=== PATIENT | male | born 1985 | race Caucasian/White ===

== ENCOUNTER 2019-08-14 14:59 | Inpatient (IN) | payer SELFPAY ==
[2019-08-14] MEDS ORDERED: ONDANSETRON 4 MG TAB.RAPDIS PO ONE (15:13)
[2019-08-14] MEDS ORDERED: ONDANSETRON HCL INJ/PF 4 MG/2 ML SDV IV ONE (15:15)
--- NOTE | 2019-08-14 15:15 | ER Document Report ---
ED GI/ - General Chief Complaint: Vomiting Stated Complaint: VOMITING Time Seen by Provider: 08/14/19 15:12 Notes: Patient is a 33-year-old male who presents the emergency department with a chief complaint of a fever, chills, myalgias, runny nose. Patient denies any recent travel. Patient also states that he has had a nonproductive cough and a headache. Patient was seen at the [facility] clinic and was tested for coven. When they went to go swab his throat, the patient ended up vomiting. Patient states that he has felt nauseous. He was then referred to the emergency department for further evaluation. Patient denies smoking. - Related Data Allergies/Adverse Reactions: No Known Allergies Allergy (Verified 08/14/19 15:19) Past Medical History - Social History Smoking Status: Never Smoker Family History: Reviewed & Not Pertinent Review of Systems - Review of Systems Notes: REVIEW OF SYSTEMS: CONSTITUTIONAL : Denies recent illness. Denies recent unintentional weight loss. See HPI. EENT: Denies eye, ear, throat, or mouth pain, discharge, or symptoms. Denies nasal or sinus congestion. CARDIOVASCULAR: Denies chest pain. RESPIRATORY: Denies shortness of breath, cough, congestion, difficulty breathing, or wheezing. GASTROINTESTINAL: See HPI. GENITOURINARY: Denies difficulty urinating, burning, blood in urine, urgency or frequency. MUSCULOSKELETAL: Denies neck and back pain. Denies joint pain or swelling. SKIN: Denies rash, itchiness, or lesions HEMATOLOGIC : Denies easy bruising or bleeding. LYMPHATIC: Denies swollen, painful, enlarged glands. NEUROLOGICAL: Denies no numbness or tingling denies weakness. Denies headache. Denies altered mental status. Denies alteration in speech. PSYCHIATRIC: Denies stress, anxiety, alteration in sleep patterns, or depression. All other systems reviewed and negative. Physical Exam - Vital signs Vitals: Temp Pulse Resp BP Pulse Ox 98.6 F 128 H 16 138/72 H 92 08/14/19 15:19 08/14/19 15:19 08/14/19 15:19 08/14/19 15:19 08/14/19 15:19 - Notes Notes: PHYSICAL EXAMINATION: GENERAL: Appears well, healthy, well-nourished, no acute distress. HEAD: Normocephalic, atraumatic. EYES: PERRL, conjunctiva normal, all extraocular movements intact, sclera nonicteric ENT: Dry mucous membranes. NECK: Supple, no noticeable swelling, redness, rash. Normal range of motion. LUNGS: Equal breath sounds bilaterally and wheezes noted throughout. CARDIOVASCULAR: S1-S2, regular rate, regular rhythm. Radial pulses 2+, normal. ABDOMEN: Normoactive bowel sounds. Soft, nontender, no guarding, no rebound tenderness, and no masses palpated. EXTREMITIES: Normal strength and range of motion, no pitting or edema. No cyanosis. NEUROLOGICAL: Moves all extremities upon command. Strength 5/5 in all extremities. PSYCH: Normal mood, normal affect. SKIN: Warm, dry. No rash, lesions, ulcerations noted. Normal skin turgor. Course - Re-evaluation Re-evalutation: 08/14/19 18:09 Patient's hematology does not show a leukocytosis, but he does have a left shift. His sodium was 134, but he received a liter of fluids. His ALT is mildly elevated. Urinalysis shows protein in the urine, consistent with dehydration. Given 19 screening pending as per the [facility] clinic. Patient's chest x-ray shows airspace disease and patchy opacification, as per the radiologist. Based off of these findings and the patient having COVID 19 symptoms. I will start him on Azithromycin and send him home with an albuterol inhaler. He is on day 4 of his symptoms. Follow-up precautions were given. Verbal discharge instructions were given to the patient. They verbalized understanding. They are stable for discharge. 08/14/19 18:35 The patient has a temperature of 103. He will be given Tylenol and will be monitored. If his temperature comes down, he will be able to go home. 08/14/19 19:23 I was informed that the patient became tachycardic in the 140s. His oxygen saturation was 88% on room air. He was placed on 2 L nasal cannula, but now is requiring 4 L of oxygen. ABG ordered. 08/14/19 20:[address] Wills. The patient will be admitted to the medical floor, on the COVID 19 unit. - Vital Signs Vital signs: Temp Pulse Resp BP Pulse Ox 99.4 F 93 19 135/83 H 96 08/14/19 21:45 08/14/19 21:45 08/14/19 21:45 08/14/19 21:45 08/14/19 21:45 - Laboratory Result Diagrams: 08/14/19 16:30 08/14/19 16:30 Laboratory results interpreted by me: 08/14/19 08/14/19 08/14/19 16:30 16:30 17:30 Lymph % (Auto) 8.7 L Seg Neutrophils % 80.3 H Carbonic Acid ABG pH ABG pCO2 ABG Total CO2 Sodium 134.3 L Glucose 111 H ALT 75 H Urine Protein 100 H 08/14/19 19:51 Lymph % (Auto) Seg Neutrophils % Carbonic Acid 0.82 L ABG pH 7.50 H ABG pCO2 27.4 L ABG Total CO2 21.5 L Sodium Glucose ALT Urine Protein Discharge - Discharge Clinical Impression: Cough Vomiting Qualifiers: Vomiting type: unspecified Vomiting Intractability: non-intractable Nausea presence: with nausea Qualified Code(s): R11.2 - Nausea with vomiting, unspecified Fever Qualifiers: Fever type: unspecified Qualified Code(s): R50.9 - Fever, unspecified Condition: Fair Disposition: ADMITTED INPATIENT Admitting Provider: Elma (Hospitalist) Unit Admitted: Medical Floor
[2019-08-14] MEDS ORDERED: NORMAL SALINE 1000 ML 1,000 ML IV ONE (15:16)
--- NOTE | 2019-08-14 16:22 | RADIOLOGY REPORT (SQ) ---
EXAM DESCRIPTION: CHEST SINGLE VIEW IMAGES COMPLETED DATE/TIME: 08/14/2019 3:09 pm REASON FOR STUDY: shortness of breath COMPARISON: None. EXAM PARAMETERS: NUMBER OF VIEWS: One view. TECHNIQUE: Single frontal radiographic view of the chest acquired. RADIATION DOSE: NA LIMITATIONS: None. FINDINGS: LUNGS AND PLEURA: Ill-defined patchy opacification in the left peripheral lower lung may r epresent combination of left effusion and airspace disease. The right lung is clear. No pneumothora x. MEDIASTINUM AND HILAR STRUCTURES: No masses. Contour normal. HEART AND VASCULAR STRUCTURES: Heart normal in size. Normal vasculature. BONES: No acute findings. HARDWARE: None in the chest. OTHER: No other significant finding. IMPRESSION: Peripheral patchy opacification at the left lower lung may represent combination of left effusion and airspace disease. TECHNICAL DOCUMENTATION: JOB ID: [id number] [email or web address] All Rights Reserved Reading location - IP/workstation name: [email or web address]
[2019-08-14 16:51] LABS: ABSOLUTE LYMPHOCYTES (AUTO) 0.9 10^3/uL (0.5-4.7); ABSOLUTE MONOCYTES (AUTO) 1.1 10^3/uL (0.1-1.4); ABSOLUTE NEUT (AUTO) 8.2 10^3/uL (1.7-8.2); BASOPHILS % (AUTO) 0.5 % (0-2); EOSINOPHILS % (AUTO) 0.1 % (0-6); HEMATOCRIT 43.6 % (37.9-51.0); HEMOGLOBIN 15.3 g/dL (13.5-17.0); LYMPHOCYTES % (AUTO) 8.7 % (13-45); MEAN CORPUSCULAR HGB CONC 35.2 g/dL (32.0-36.0); MEAN CORPUSCULAR VOLUME 82 fl (80-97); MONOCYTES % (AUTO) 10.4 % (3-13); PLATELET COUNT 338 10^3/uL (150-450); RED CELL DISTRIBUTION WIDTH 13.2 % (11.5-14.0); SEGMENTED NEUTROPHILS % (AUTO) 80.3 % (42-78); TOTAL CELLS COUNTED % (AUTO) 100 %; WHITE BLOOD COUNT 10.2 10^3/uL (4.0-10.5)
[2019-08-14 17:14] LABS: ALBUMIN 4.3 g/dL (3.5-5.0); ALKALINE PHOSPHATASE 59 U/L (38-126); ANION GAP 10 (5-19); ASPARTATE AMINO TRANSFERASE 54 U/L (17-59); BILIRUBIN,DIRECT 0.1 mg/dL (0.0-0.4); BLOOD UREA NITROGEN 13 mg/dL (7-20); CALCIUM 9.3 mg/dL (8.4-10.2); CARBON DIOXIDE 26 mmol/L (22-30); CHLORIDE 98 mmol/L (98-107); GLUCOSE 111 mg/dL (75-110); POTASSIUM 4.9 mmol/L (3.6-5.0); TOTAL PROTEIN 7.5 g/dL (6.3-8.2)
[2019-08-14 17:49] LABS: APPEARANCE,URINE SLIGHTLY-CLOUDY; BILIRUBIN,URINE NEGATIVE (NEGATIVE); COLOR,URINE AMBER; GLUCOSE, URINE NEGATIVE (NEGATIVE); KETONES,URINE NEGATIVE (NEGATIVE); PROTEIN,URINE 100 mg/dL (NEGATIVE); URINE SPECIFIC GRAVITY 1.033; UROBILINOGEN,URINE NEGATIVE mg/dL (<2.0)
[2019-08-14] MEDS ORDERED: AZITHROMYCIN 250 MG TABLET PO ONE (18:13)
[2019-08-14] MEDS ORDERED: ACETAMINOPHEN 325 MG TABLET PO ONE (18:27)
[2019-08-14] MEDS ORDERED: ALBUTEROL SULFATE HFA (90 MCG/PUFF) 8 GM MDI (1 MDI/ER DISP) IH PRN (19:21)
[2019-08-14] MEDS: ALBUTEROL SULFATE HFA (90 MCG/PUFF) 8 GM MDI IH SCH (19:59)
[2019-08-14 20:03] LABS: ARTERIAL BLOOD H2CO3 0.82 mmol/L (1.05-1.35); ARTERIAL BLOOD HCO3 20.7 mmol/L (20-24); ARTERIAL BLOOD O2 SATURATION 97.7 % (94-98); ARTERIAL BLOOD PCO2 27.4 mmHg (35-45); ARTERIAL BLOOD PO2 91.6 mmHg (80-100); ARTERIAL BLOOD TOTAL CO2 21.5 mmol/L (23-27)
[2019-08-14 20:07] LABS: ARTERIAL BLOOD FIO2 4L
[2019-08-14] MEDS ORDERED: GUAIFENESIN SYRP 200 MG/10 ML UDC PO PRN (21:45)
[2019-08-14] MEDS ORDERED: MORPHINE SULFATE 10 MG/ML INJ IV PRN (22:11)
[2019-08-14] MEDS ORDERED: MAG HYDROX/AL HYDROX/SIMETH SUSP 30 ML UDCUP PO PRN (22:11)
[2019-08-14] MEDS ORDERED: MAGNESIUM HYDROXIDE SUSP 30 ML UDCUP PO PRN (22:11)
[2019-08-14] MEDS ORDERED: INFLUENZA QUAD (6MOS+) 2019-20 VAC 0.5 ML SYR IM ONE (22:14)
[2019-08-14] MEDS: CEFTRIAXONE 1 GM/D5W RTU 1 GM/50 ML RTUPB IV SCH (22:50)
[2019-08-14] MEDS: HEPARIN SOD (PORCINE) 5,000 UNIT/ML 1 ML VIAL SUBCUT SCH (22:50)
[2019-08-14] MEDS: FAMOTIDINE 20 MG TABLET PO SCH (22:50)
[2019-08-14] MEDS: MORPHINE SULFATE 10 MG/ML INJ IV PRN (23:44)
[2019-08-15] MEDS: ALBUTEROL SULFATE HFA (90 MCG/PUFF) 8 GM MDI IH SCH ×6 (00:15→19:30)
[2019-08-15] MEDS: ACETAMINOPHEN 325 MG TABLET PO PRN ×2 (01:17→13:41)
[2019-08-15] MEDS: IBUPROFEN 800 MG TABLET PO PRN ×3 (02:48→21:28)
[2019-08-15] MEDS: MORPHINE SULFATE 10 MG/ML INJ IV PRN ×2 (02:57→20:10)
[2019-08-15 05:44] LABS: HEMATOCRIT 40.5 % (37.9-51.0); MEAN CORPUSCULAR HEMOGLOBIN 28.4 pg (27.0-33.4); MEAN CORPUSCULAR HGB CONC 34.6 g/dL (32.0-36.0); MEAN CORPUSCULAR VOLUME 82 fl (80-97); PLATELET COUNT 305 10^3/uL (150-450); RED BLOOD COUNT 4.93 10^6/uL (4.35-5.55); RED CELL DISTRIBUTION WIDTH 13.3 % (11.5-14.0); WHITE BLOOD COUNT 11.2 10^3/uL (4.0-10.5)
[2019-08-15 06:02] LABS: ANION GAP 11 (5-19); BLOOD UREA NITROGEN 14 mg/dL (7-20); CARBON DIOXIDE 24 mmol/L (22-30); CHLORIDE 99 mmol/L (98-107); GLUCOSE 118 mg/dL (75-110); POTASSIUM 4.3 mmol/L (3.6-5.0)
--- NOTE | 2019-08-15 06:32 | PDOC H&P ---
History of Present Illness Admission Date/PCP: 08/14/19 20:31 No local PCP Patient complains of: Fever History of Present Illness: JAYSON OBREGON is a 33 year old male who presented the emergency room with a 3- day history of fever. He admits having developed an intermittent fever 3 days ago which has gradually worsened to being severe (subjective). His fever has been accompanied by chills, ague, malaise, generalized weakness and fatigue. His fevers been associated with rhinorrhea, nonproductive cough and headache. He denies other associated or accompanying signs and symptoms. He denies prior similar episodes. He has not identified any aggravating or ameliorating factors for his fever. In the emergency room he was found to have a left lower lobe infiltrate on his chest x-ray and a fever to 103 F with an oxygen saturation of 88% on room air and a tachycardia in the 140s. He was subsequently treated with IV fluids, antipyretics and antibiotics in the emergency room and admitted to the medical floor for further evaluation and treatment. Covid-19 testing has been performed. Past Medical History Cardiac Medical History: Denies: Atrial Fibrillation, Coronary Artery Disease, DVT, Hyperlipidema, Hypertension, Pulmonary Embolism Pulmonary Medical History: Denies: Asthma, Chronic Obstructive Pulmonary Disease (COPD) EENT Medical History: Denies: Cataracts, Ears - Hearing aids Neurological Medical History: Denies: Hemorrhagic CVA, Ischemic CVA, Seizures Endocrine Medical History: Reports: Obesity Denies: Diabetes Mellitus Type 1, Diabetes Mellitus Type 2, Hyperthyroidism, Hypothyroidism Renal/ Medical History: Denies: Chronic Kidney Disease, Nephrolithiasis Malignancy Medical History: Reports: None GI Medical History: Denies: Cirrhosis, Crohn's Disease, Hepatitis, Ulcerative Colitis Musculoskeltal Medical History: Denies: Arthritis, Gout Skin Medical History: Denies: Eczema, Psoriasis Psychiatric Medical History: Denies: Alcohol Dependency, Substance Abuse, Tobacco Dependency Traumatic Medical History: Reports: None Hematology: Denies: Anemia, Bleeding Tendencies Infectious Medical History: Reports: None Past Surgical History Past Surgical History: Reports: None Social History Information Source: Patient Lives with: Spouse/Significant other Smoking Status: Never Smoker Electronic Cigarette use?: No Frequency of Alcohol Use: None Hx Recreational Drug Use: No Drugs: None Hx Prescription Drug Abuse: No - Advance Directive Resuscitation Status: Full Code Surrogate healthcare decision maker:: Estephaniaze Obregon Family History Family History: denies: CAD, DM, Hypertension, Malignancy Parental Family History Reviewed: Yes Children Family History Reviewed: No Sibling(s) Family History Reviewed.: Yes Medication/Allergy Home Medications: Albuterol Sulfate [Proair HFA Inhalation Aerosol 8.5 gm MDI] 2 puff IH Q4H PRN #1 mdi 08/14/19 Azithromycin [Zithromax 250 mg Tablet] 250 mg PO DAILY #4 tablet 08/14/19 Ondansetron [Zofran Odt 4 mg Tablet] 1 - 2 tab PO Q4H PRN #30 tab.rapdis 08/14/19 Allergies/Adverse Reactions: No Known Allergies Allergy (Verified 08/14/19 15:19) Review of Systems Constitutional: PRESENT: as per HPI, chills, fatigue, fever(s), headache(s), weakness Eyes: ABSENT: visual disturbances, other - Eye pain Ears: ABSENT: hearing changes, other - Ear pain Nose, Mouth, and Throat: PRESENT: headache(s). ABSENT: mouth pain, sore throat Cardiovascular: ABSENT: chest pain, palpitations Respiratory: PRESENT: cough. ABSENT: dyspnea, sputum Gastrointestinal: ABSENT: abdominal pain, constipation, diarrhea, nausea, vomiting Genitourinary: ABSENT: dysuria, hematuria Musculoskeletal: PRESENT: muscle weakness - Generalized. ABSENT: joint swelling Integumentary: ABSENT: pruritus, rash Neurological: ABSENT: confusion, convulsions, focal weakness, memory loss, syncope Psychiatric: ABSENT: anxiety, depression Endocrine: ABSENT: cold intolerance, heat intolerance, polydipsia, polyphagia, polyuria Hematologic/Lymphatic: ABSENT: easy bleeding, easy bruising Allergic/Immunologic: ABSENT: seasonal rhinorrhea Physical Exam Vital Signs: Temp Pulse Resp BP Pulse Ox 101.8 F H 109 H 25 H 114/71 95 08/14/19 19:35 08/14/19 19:35 08/14/19 19:35 08/14/19 19:35 08/14/19 19:35 Intake & Output 08/12/19 08/13/19 08/14/19 23:59 23:59 23:59 Intake Total 1000 Balance 1000 Weight 108.862 kg General appearance: PRESENT: no acute distress, cooperative, obese Head exam: PRESENT: atraumatic, normocephalic Eye exam: PRESENT: conjunctiva pink. ABSENT: conjunctival injection, scleral icterus Ear exam: PRESENT: normal external ear exam. ABSENT: bleeding, drainage Mouth exam: PRESENT: dry mucosa, neck supple Neck exam: ABSENT: thyromegaly, tracheal deviation Respiratory exam: PRESENT: clear to auscultation clarita, symmetrical, unlabored Cardiovascular exam: PRESENT: RRR. ABSENT: clicks, gallop, rubs Pulses: PRESENT: normal radial pulses, normal dorsalis pedis pul Vascular exam: PRESENT: normal capillary refill. ABSENT: pallor GI/Abdominal exam: PRESENT: normal bowel sounds, soft Rectal exam: PRESENT: deferred Extremities exam: ABSENT: joint swelling, pedal edema Musculoskeletal exam: ABSENT: deformity, dislocation Neurological exam: PRESENT: alert, oriented to person, oriented to place, oriented to time, oriented to situation, CN II-XII grossly intact. ABSENT: jose angel r sensory deficit Psychiatric exam: PRESENT: appropriate affect, normal mood Skin exam: PRESENT: dry, intact, warm. ABSENT: jaundice, rash, urticaria Results Laboratory Results: 08/14/19 16:30 08/14/19 16:30 08/14/19 08/14/19 08/14/19 16:30 16:30 17:30 WBC 10.2 RBC 5.30 Hgb 15.3 Hct 43.6 MCV 82 MCH 29.0 MCHC 35.2 RDW 13.2 Plt Count 338 Seg Neutrophils % 80.3 H Carbonic Acid HCO3/H2CO3 Ratio ABG pH ABG pCO2 ABG pO2 ABG HCO3 ABG O2 Saturation ABG Base Excess FiO2 Sodium 134.3 L Potassium 4.9 Chloride 98 Carbon Dioxide 26 Anion Gap 10 BUN 13 Creatinine 0.84 Est GFR ( Amer) > 60 Glucose 111 H Calcium 9.3 Total Bilirubin 1.0 AST 54 Alkaline Phosphatase 59 Total Protein 7.5 Albumin 4.3 Lipase 58.4 Urine Color TANI Urine Appearance SLIGHTLY-CLOUDY Urine pH 6.0 Ur Specific [place] 1.033 Urine Protein 100 H Urine Glucose (UA) NEGATIVE Urine Ketones NEGATIVE Urine Blood NEGATIVE Urine RBC (Auto) 4 08/14/19 19:51 WBC RBC Hgb Hct MCV MCH MCHC RDW Plt Count Seg Neutrophils % Carbonic Acid 0.82 L HCO3/H2CO3 Ratio 25:1 ABG pH 7.50 H ABG pCO2 27.4 L ABG pO2 91.6 ABG HCO3 20.7 ABG O2 Saturation 97.7 ABG Base Excess -1.0 FiO2 4L Sodium Potassium Chloride Carbon Dioxide Anion Gap BUN Creatinine Est GFR ( Amer) Glucose Calcium Total Bilirubin AST Alkaline Phosphatase Total Protein Albumin Lipase Urine Color Urine Appearance Urine pH Ur Specific [place] Urine Protein Urine Glucose (UA) Urine Ketones Urine Blood Urine RBC (Auto) Impressions: Chest X-Ray 08/14/19 15:28 IMPRESSION: Peripheral patchy opacification at the left lower lung may represent combination of left effusion and airspace disease. Assessment and Plan - Diagnosis (1) Left lower lobe pneumonia Qualifiers: Pneumonia type: due to unspecified organism Qualified Code(s): J18.9 - Pneumonia, unspecified organism Is this a current diagnosis for this admission?: Yes (2) Acute respiratory failure with hypoxia Is this a current diagnosis for this admission?: Yes (3) Fever Qualifiers: Fever type: unspecified Qualified Code(s): R50.9 - Fever, unspecified Is this a current diagnosis for this admission?: Yes (4) Generalized weakness Is this a current diagnosis for this admission?: Yes (5) Fatigue Qualifiers: Fatigue type: unspecified Qualified Code(s): R53.83 - Other fatigue Is this a current diagnosis for this admission?: Yes (6) Chills with fever Is this a current diagnosis for this admission?: Yes (7) Cough Is this a current diagnosis for this admission?: Yes (8) Malaise Is this a current diagnosis for this admission?: Yes (9) Ague Is this a current diagnosis for this admission?: Yes - Plan Summary Summary: Patient is admitted to the medical floor where he will receive routine supportive and symptomatic cares. He will be treated with IV fluid and IV a ntibiotics utilizing azithromycin and Rocephin. He will receive supplemental oxygen as needed to maintain an adequate oxygen saturation utilizing nasal cannula oxygen and if required noninvasive airway pressure support devices such as BiPAP. CBCs, metabolic profiles and magnesium levels will be obtained as appropriate. Arterial blood gases will be obtained as needed. Patient will use morphine sulfate 2 to 4 mg IV every 2 hours as needed for pain control. Coronavirus Covid-19 testing is pending. - Time Time Spent with patient: 15-24 minutes Medications reviewed and adjusted accordingly: No - None Anticipated discharge: Home - Inpatient Certification Based on my medical assessment, after consideration of the patient's comorbidities, presenting symptoms, or acuity I expect that the services needed warrant INPATIENT care.: Yes I certify that my determination is in accordance with my understanding of Medicare's requirements for reasonable and necessary INPATIENT services [42 CFR 412.3e].: Yes Medical Necessity: Need Close Monitoring Due to Risk of Patient Decompensation, Need For IV Fluids, Risk of Complication if Not Cared For in Hospital, Risk of Diagnosis Which Will Require Inpatient Eval/Care/Monitoring
[2019-08-15] MEDS: HEPARIN SOD (PORCINE) 5,000 UNIT/ML 1 ML VIAL SUBCUT SCH ×3 (07:00→21:27)
[2019-08-15] MEDS: AZITHROMYCIN 250 MG TABLET PO SCH (09:18)
[2019-08-15] MEDS: FAMOTIDINE 20 MG TABLET PO SCH ×2 (09:18→21:28)
--- NOTE | 2019-08-15 09:30 | EKG REPORT ---
SEVERITY:- OTHERWISE NORMAL ECG - SINUS TACHYCARDIA : Confirmed by: Johnathon Lopez 15-Aug-2019 09:29:42
[2019-08-15] MEDS ORDERED: DOCUSATE SODIUM 100 MG CAPSULE PO SCH (10:00)
--- NOTE | 2019-08-15 17:31 | PDOC PROGRESS REPORT ---
Subjective Progress Note for:: 08/15/19 Subjective:: The patient was having some breathing difficulties. He has a cough. He states that he feels short of breath. When he began to feel short of breath he became panicked and this made his breathing worse. We are placing him on nasal cannula oxygen at this time. Reason For Visit: PNEUOMONIA Physical Exam Vital Signs: Temp Pulse Resp BP Pulse Ox 99.1 F 84 18 104/68 93 08/15/19 15:29 08/15/19 15:29 08/15/19 15:29 08/15/19 15:29 08/15/19 15:29 Intake & Output 08/14/19 08/15/19 08/16/19 06:59 06:59 06:59 Intake Total 2150 466 Balance 2150 466 Weight 108.8 kg General appearance: PRESENT: cooperative, mild distress, well-developed Head exam: PRESENT: atraumatic, normocephalic Eye exam: PRESENT: conjunctiva pink. ABSENT: scleral icterus Ear exam: PRESENT: normal external ear exam. ABSENT: bleeding, drainage Mouth exam: PRESENT: moist, tongue midline Respiratory exam: PRESENT: rales - Faint rales bilaterally, symmetrical, tachypnea, unlabored. ABSENT: accessory muscle use, prolonged expiratory phas, rhonchi, wheezes Cardiovascular exam: PRESENT: RRR, +S1, +S2 GI/Abdominal exam: PRESENT: normal bowel sounds, soft. ABSENT: distended, guarding, tenderness Rectal exam: PRESENT: deferred Gentrourinary exam: ABSENT: indwelling catheter Extremities exam: ABSENT: pedal edema Musculoskeletal exam: PRESENT: ambulatory, normal inspection. ABSENT: deformity Neurological exam: PRESENT: alert, awake, oriented to person, oriented to place, oriented to time, oriented to situation, CN II-XII grossly intact. ABSENT: altered, motor sensory deficit Psychiatric exam: PRESENT: anxious. ABSENT: agitated Focused psych exam: ABSENT: delusional, paranoid, restlessness Skin exam: PRESENT: dry, normal color, warm. ABSENT: rash Results Laboratory Results: 08/15/19 05:01 08/15/19 05:01 08/14/19 08/14/19 08/15/19 17:30 19:51 05:01 WBC 11.2 H RBC 4.93 Hgb 14.0 Hct 40.5 MCV 82 MCH 28.4 MCHC 34.6 RDW 13.3 Plt Count 305 Carbonic Acid 0.82 L HCO3/H2CO3 Ratio 25:1 ABG pH 7.50 H ABG pCO2 27.4 L ABG pO2 91.6 ABG HCO3 20.7 ABG O2 Saturation 97.7 ABG Base Excess -1.0 FiO2 4L Sodium Potassium Chloride Carbon Dioxide Anion Gap BUN Creatinine Est GFR ( Amer) Glucose Calcium Urine Color TANI Urine Appearance SLIGHTLY-CLOUDY Urine pH 6.0 Ur Specific [place] 1.033 Urine Protein 100 H Urine Glucose (UA) NEGATIVE Urine Ketones NEGATIVE Urine Blood NEGATIVE Urine RBC (Auto) 4 08/15/19 05:01 WBC RBC Hgb Hct MCV MCH MCHC RDW Plt Count Carbonic Acid HCO3/H2CO3 Ratio ABG pH ABG pCO2 ABG pO2 ABG HCO3 ABG O2 Saturation ABG Base Excess FiO2 Sodium 134.4 L Potassium 4.3 Chloride 99 Carbon Dioxide 24 Anion Gap 11 BUN 14 Creatinine 0.80 Est GFR ( Amer) > 60 Glucose 118 H Calcium 9.0 Urine Color Urine Appearance Urine pH Ur Specific [place] Urine Protein Urine Glucose (UA) Urine Ketones Urine Blood Urine RBC (Auto) Impressions: Chest X-Ray 08/14/19 15:28 IMPRESSION: Peripheral patchy opacification at the left lower lung may represent combination of left effusion and airspace disease. Assessment and Plan - Diagnosis (1) Left lower lobe pneumonia Qualifiers: Pneumonia type: due to unspecified organism Qualified Code(s): J18.9 - Pneumonia, unspecified organism Is this a current diagnosis for this admission?: Yes Plan: August 15, 2019 His white count is slightly higher today. Chest x-ray shows consolidation left lower lobe. The patient has not been coughing up much sputum. We will continue antibiotic therapy but patient was also tested for Covid-19. (2) Acute respiratory failure with hypoxia Is this a current diagnosis for this admission?: Yes Plan: August 15, 2019 During this encounter the patient felt very short of breath. His oxygen saturation will sometimes drop below 90. We did place him on 2 L nasal cannula and worked with deep breathing at the bedside. He did begin to feel better. We will make the oxygen available as needed to maintain saturation greater than or equal to 93 to 94%. (3) Fever Qualifiers: Fever type: unspecified Qualified Code(s): R50.9 - Fever, unspecified Is this a current diagnosis for this admission?: Yes Plan: August 15, 2019 Secondary to infection. T-max last night was 103.0 F. Acetaminophen has been helping. Continue serial vital signs. (4) Generalized weakness Is this a current diagnosis for this admission?: Yes Plan: August 15, 2019 The patient reports profound weakness. This is likely due to the infection. I reinforced that his weakness should improve as the infection resolves. (5) Chills with fever Is this a current diagnosis for this admission?: Yes Plan: August 15, 2019 The patient has been experiencing fever with subsequent chills. It seems to happen occasionally. We will continue to monitor with serial vital signs. I did encourage him to be patient as this should resolve as the infection clears. (6) Fatigue Qualifiers: Fatigue type: unspecified Qualified Code(s): R53.83 - Other fatigue Is this a current diagnosis for this admission?: Yes Plan: August 15, 2019 Secondary to infection. Symptom constellation certainly is concerning for viral pneumonia. (7) Headache Qualifiers: Headache type: unspecified Headache chronicity pattern: acute headache Intractability: not intractable Qualified Code(s): R51 - Headache Is this a current diagnosis for this admission?: Yes Plan: August 15, 2019 Patient states that he has been coughing so much his head hurts. When coughing the headache is worse. I told him as his cough diminishes his headache will improve. He does get some relief with acetaminophen. (8) Cough Is this a current diagnosis for this admission?: Yes Plan: August 15, 2019 Secondary to infection. As needed medications. (9) Encounter for observation for suspected exposure to other biological agents ruled out Is this a current diagnosis for this admission?: Yes Plan: August 15, 2019 Symptom complex is concerning for viral pneumonia. Covid-19 specimen was sent. - Plan Summary Summary: Patient is admitted to the medical floor where he will receive routine supportive and symptomatic cares. He will be treated with IV fluid and IV ant ibiotics utilizing azithromycin and Rocephin. He will receive supplemental oxygen as needed to maintain an adequate oxygen saturation utilizing nasal cannula oxygen and if required noninvasive airway pressure support devices such as BiPAP. CBCs, metabolic profiles and magnesium levels will be obtained as appropriate. Arterial blood gases will be obtained as needed. Patient will use morphine sulfate 2 to 4 mg IV every 2 hours as needed for pain control. Coronavirus Covid-19 testing is pending. - Time Time Spent with patient: 15-24 minutes Medications reviewed and adjusted accordingly: Yes Anticipated discharge: Home
[2019-08-15] MEDS: CEFTRIAXONE 1 GM/D5W RTU 1 GM/50 ML RTUPB IV SCH (21:27)
[2019-08-15] MEDS: DOCUSATE SODIUM 100 MG CAPSULE PO SCH (21:28)
[2019-08-15] MEDS: GUAIFENESIN 600 MG TABLET.SA PO SCH (21:28)
[2019-08-15] MEDS: MELATONIN 5 MG TABLET PO PRN (21:32)
[2019-08-16] MEDS: ALBUTEROL SULFATE HFA (90 MCG/PUFF) 8 GM MDI IH SCH ×7 (00:30→22:53)
[2019-08-16] MEDS: MORPHINE SULFATE 10 MG/ML INJ IV PRN (05:11)
[2019-08-16] MEDS ORDERED: LORAZEPAM INJ 2 MG/1 ML VIAL IV PRN (05:24)
[2019-08-16] MEDS: HEPARIN SOD (PORCINE) 5,000 UNIT/ML 1 ML VIAL SUBCUT SCH ×3 (06:55→21:07)
[2019-08-16 06:56] LABS: HEMATOCRIT 41.9 % (37.9-51.0); HEMOGLOBIN 14.7 g/dL (13.5-17.0); MEAN CORPUSCULAR HEMOGLOBIN 28.8 pg (27.0-33.4); MEAN CORPUSCULAR HGB CONC 35.1 g/dL (32.0-36.0); MEAN CORPUSCULAR VOLUME 82 fl (80-97); PLATELET COUNT 279 10^3/uL (150-450); RED BLOOD COUNT 5.11 10^6/uL (4.35-5.55); RED CELL DISTRIBUTION WIDTH 13.3 % (11.5-14.0); WHITE BLOOD COUNT 9.3 10^3/uL (4.0-10.5)
[2019-08-16 07:15] LABS: ALBUMIN 4.1 g/dL (3.5-5.0); ALKALINE PHOSPHATASE 71 U/L (38-126); ANION GAP 15 (5-19); ASPARTATE AMINO TRANSFERASE 61 U/L (17-59); BILIRUBIN,DIRECT 0.3 mg/dL (0.0-0.4); BILIRUBIN,TOTAL 0.7 mg/dL (0.2-1.3); BLOOD UREA NITROGEN 16 mg/dL (7-20); CALCIUM 8.9 mg/dL (8.4-10.2); CARBON DIOXIDE 22 mmol/L (22-30); CHLORIDE 99 mmol/L (98-107); GLUCOSE 94 mg/dL (75-110); POTASSIUM 4.7 mmol/L (3.6-5.0); TOTAL PROTEIN 7.4 g/dL (6.3-8.2)
[2019-08-16] MEDS: DOCUSATE SODIUM 100 MG CAPSULE PO SCH ×3 (09:26→22:28)
[2019-08-16] MEDS: AZITHROMYCIN 250 MG TABLET PO SCH (09:26)
[2019-08-16] MEDS: FAMOTIDINE 20 MG TABLET PO SCH ×2 (09:26→21:07)
[2019-08-16] MEDS: GUAIFENESIN 600 MG TABLET.SA PO SCH ×2 (09:26→21:08)
[2019-08-16] MEDS: IBUPROFEN 800 MG TABLET PO PRN (09:55)
--- NOTE | 2019-08-16 16:12 | PDOC PROGRESS REPORT ---
Subjective Progress Note for:: 08/16/19 Subjective:: The patient is sitting in bed and just his shorts. He states he was just feeling extremely warm and is having fever with shaking chills again. He reports that he is very sensitive to temperature changes. In general he is feeling better than yesterday but is still concerned about the recurrent fevers. Reason For Visit: PNEUOMONIA Physical Exam Vital Signs: Temp Pulse Resp BP Pulse Ox 98.7 F 89 16 113/77 93 08/16/19 14:12 08/16/19 14:12 08/16/19 14:12 08/16/19 14:12 08/16/19 14:12 Intake & Output 08/15/19 08/16/19 08/17/19 06:59 06:59 06:59 Intake Total 2150 936 708 Balance 2150 936 708 Weight 108.8 kg 110.2 kg General appearance: PRESENT: cooperative, mild distress, well-developed Head exam: PRESENT: atraumatic, normocephalic Eye exam: PRESENT: conjunctiva pink. ABSENT: scleral icterus Ear exam: PRESENT: normal external ear exam. ABSENT: bleeding, drainage Mouth exam: PRESENT: moist, tongue midline Respiratory exam: PRESENT: rales - Fine bilateral rales, symmetrical, unlabored. ABSENT: accessory muscle use, rhonchi, tachypnea, wheezes Cardiovascular exam: PRESENT: +S1, +S2, systolic murmur - Likely flow murmur from tachycardia, tachycardia GI/Abdominal exam: PRESENT: normal bowel sounds, soft. ABSENT: distended, guarding, tenderness Rectal exam: PRESENT: deferred Gentrourinary exam: ABSENT: indwelling catheter Extremities exam: ABSENT: pedal edema Musculoskeletal exam: PRESENT: ambulatory, normal inspection. ABSENT: deformity Neurological exam: PRESENT: alert, awake, oriented to person, oriented to place, oriented to time, oriented to situation, CN II-XII grossly intact. ABSENT: altered Psychiatric exam: PRESENT: anxious. ABSENT: agitated Focused psych exam: ABSENT: delusional, paranoid, restlessness Skin exam: PRESENT: dry, normal color, warm. ABSENT: rash Results Laboratory Results: 08/16/19 06:03 08/16/19 06:03 08/16/19 08/16/19 06:03 06:03 WBC 9.3 RBC 5.11 Hgb 14.7 Hct 41.9 MCV 82 MCH 28.8 MCHC 35.1 RDW 13.3 Plt Count 279 Sodium 136.0 L Potassium 4.7 Chloride 99 Carbon Dioxide 22 Anion Gap 15 BUN 16 Creatinine 0.77 Est GFR ( Amer) > 60 Glucose 94 Calcium 8.9 Magnesium 2.3 Total Bilirubin 0.7 AST 61 H Alkaline Phosphatase 71 Total Protein 7.4 Albumin 4.1 Impressions: Chest X-Ray 08/14/19 15:28 IMPRESSION: Peripheral patchy opacification at the left lower lung may represe nt combination of left effusion and airspace disease. Assessment and Plan - Diagnosis (1) Left lower lobe pneumonia Qualifiers: Pneumonia type: due to unspecified organism Qualified Code(s): J18.9 - Pneumonia, unspecified organism Is this a current diagnosis for this admission?: Yes Plan: August 15, 2019 His white count is slightly higher today. Chest x-ray shows consolidation left lower lobe. The patient has not been coughing up much sputum. We will continue antibiotic therapy but patient was also tested for Covid-19. August 16, 2019 Continue antibiotic therapy however symptom complex and lymphopenia are worrisome for viral infection. Still having recurrent fevers. (2) Acute respiratory failure with hypoxia Is this a current diagnosis for this admission?: Yes Plan: August 15, 2019 During this encounter the patient felt very short of breath. His oxygen saturation will sometimes drop below 90. We did place him on 2 L nasal cannula and worked with deep breathing at the bedside. He did begin to feel better. We will make the oxygen available as needed to maintain saturation greater than or equal to 93 to 94%. August 16, 2019 Still intermittently utilizes nasal cannula oxygen. Continue to keep saturation greater than or equal to 94% (3) Fever Qualifiers: Fever type: unspecified Qualified Code(s): R50.9 - Fever, unspecified Is this a current diagnosis for this admission?: Yes Plan: August 15, 2019 Secondary to infection. T-max last night was 103.0 F. Acetaminophen has been helping. Continue serial vital signs. August 16, 2019 T-max today was 103.1 F. In between the patient is actually afebrile. We will continue to monitor closely and treat symptomatically. Continue antibiotic therapy as ordered. (4) Generalized weakness Is this a current diagnosis for this admission?: Yes Plan: August 15, 2019 The patient reports profound weakness. This is likely due to the infection. I reinforced that his weakness should improve as the infection resolves. August 16, 2019 Unchanged (5) Chills with fever Is this a current diagnosis for this admission?: Yes Plan: August 15, 2019 The patient has been experiencing fever with subsequent chills. It seems to happen occasionally. We will continue to monitor with serial vital signs. I did encourage him to be patient as this should resolve as the infection clears. August 16, 2019 T-max as noted above. Supportive care. Encourage fluids. (6) Fatigue Qualifiers: Fatigue type: unspecified Qualified Code(s): R53.83 - Other fatigue Is this a current diagnosis for this admission?: Yes Plan: August 15, 2019 Secondary to infection. Symptom constellation certainly is concerning for viral pneumonia. August 16, 2019 Unchanged (7) Headache Qualifiers: Headache type: unspecified Headache chronicity pattern: acute headache In tractability: not intractable Qualified Code(s): R51 - Headache Is this a current diagnosis for this admission?: Yes Plan: August 15, 2019 Patient states that he has been coughing so much his head hurts. When coughing the headache is worse. I told him as his cough diminishes his headache will improve. He does get some relief with acetaminophen. August 16, 2019 Patient reports headache is slightly better as his cough is slightly improved. Continue supportive care. (8) Cough Is this a current diagnosis for this admission?: Yes Plan: August 15, 2019 Secondary to infection. As needed medications. August 16, 2019 He feels that his chest is loosening. He feels he might be able to cough up sputum. Encourage adequate hydration. Continue guaifenesin. (9) Encounter for observation for suspected exposure to other biological agents ruled out Is this a current diagnosis for this admission?: Yes Plan: August 15, 2019 Symptom complex is concerning for viral pneumonia. Covid-19 specimen was sent. August 16, 2019 Based on progression of disease as well as his lymphopenia there is a high index of suspicion for Covid-19 virus. Results are still pending. - Plan Summary Summary: Patient is admitted to the medical floor where he will receive routine supportive and symptomatic cares. He will be treated with IV fluid and IV anti biotics utilizing azithromycin and Rocephin. He will receive supplemental oxygen as needed to maintain an adequate oxygen saturation utilizing nasal cannula oxygen and if required noninvasive airway pressure support devices such as BiPAP. CBCs, metabolic profiles and magnesium levels will be obtained as appropriate. Arterial blood gases will be obtained as needed. Patient will use morphine sulfate 2 to 4 mg IV every 2 hours as needed for pain control. Coronavirus Covid-19 testing is pending. - Time Time Spent with patient: 15-24 minutes Medications reviewed and adjusted accordingly: Yes Anticipated discharge: Home
[2019-08-16] MEDS: CEFTRIAXONE 1 GM/D5W RTU 1 GM/50 ML RTUPB IV SCH (21:08)
[2019-08-17] MEDS: MELATONIN 5 MG TABLET PO PRN (00:14)
[2019-08-17] MEDS: ALBUTEROL SULFATE HFA (90 MCG/PUFF) 8 GM MDI IH SCH ×6 (04:25→23:57)
[2019-08-17] MEDS: HEPARIN SOD (PORCINE) 5,000 UNIT/ML 1 ML VIAL SUBCUT SCH ×3 (05:32→21:43)
[2019-08-17] MEDS: ACETAMINOPHEN 325 MG TABLET PO PRN ×2 (06:01→22:23)
[2019-08-17 06:05] LABS: HEMATOCRIT 38.8 % (37.9-51.0); HEMOGLOBIN 13.7 g/dL (13.5-17.0); MEAN CORPUSCULAR HEMOGLOBIN 28.6 pg (27.0-33.4); MEAN CORPUSCULAR HGB CONC 35.2 g/dL (32.0-36.0); MEAN CORPUSCULAR VOLUME 81 fl (80-97); PLATELET COUNT 334 10^3/uL (150-450); RED BLOOD COUNT 4.78 10^6/uL (4.35-5.55); RED CELL DISTRIBUTION WIDTH 13.4 % (11.5-14.0); WHITE BLOOD COUNT 6.1 10^3/uL (4.0-10.5)
[2019-08-17] MEDS: DOCUSATE SODIUM 100 MG CAPSULE PO SCH ×2 (10:05→21:44)
[2019-08-17] MEDS: GUAIFENESIN 600 MG TABLET.SA PO SCH ×2 (10:05→21:46)
[2019-08-17] MEDS: FAMOTIDINE 20 MG TABLET PO SCH ×2 (10:05→21:46)
[2019-08-17] MEDS: AZITHROMYCIN 250 MG TABLET PO SCH (10:05)
--- NOTE | 2019-08-17 14:23 | PDOC PROGRESS REPORT ---
Subjective Progress Note for:: 08/17/19 Subjective:: No adverse events overnight. He has not had any fevers since yesterday morning. He said he got up and did a few things in the room today but he got back in bed because he got tired really easily. He is not requiring oxygen. No cough. Reason For Visit: PNEUOMONIA Physical Exam Vital Signs: Temp Pulse Resp BP Pulse Ox 98.7 F 84 19 103/87 H 94 08/17/19 04:00 08/17/19 04:00 08/17/19 04:00 08/17/19 04:00 08/17/19 04:00 Intake & Output 08/16/19 08/17/19 08/18/19 06:59 06:59 06:59 Intake Total 936 2258 Balance 936 2258 Weight 110.2 kg 109.2 kg General appearance: PRESENT: no acute distress, cooperative, disheveled, obese Respiratory exam: PRESENT: clear to auscultation clarita, symmetrical, unlabored. ABSENT: accessory muscle use, chest wall tenderness, prolonged expiratory phas, retraction, rhonchi, tachypnea, wheezes Cardiovascular exam: PRESENT: RRR, +S1, +S2 Pulses: PRESENT: normal carotid pulses Vascular exam: PRESENT: normal capillary refill GI/Abdominal exam: PRESENT: normal bowel sounds, soft. ABSENT: distended, guarding, rebound, tenderness Extremities exam: ABSENT: clubbing, pedal edema Musculoskeletal exam: PRESENT: ambulatory, normal inspection. ABSENT: deformity Neurological exam: PRESENT: alert, awake, oriented to person, oriented to place, oriented to situation Psychiatric exam: PRESENT: appropriate affect, normal mood Skin exam: PRESENT: dry, warm Results Laboratory Results: 08/17/19 05:50 08/16/19 06:03 08/17/19 05:50 WBC 6.1 RBC 4.78 Hgb 13.7 Hct 38.8 MCV 81 MCH 28.6 MCHC 35.2 RDW 13.4 Plt Count 334 Impressions: Chest X-Ray 08/14/19 15:28 IMPRESSION: Peripheral patchy opacification at the left lower lung may represent combination of left effusion and airspace disease. Assessment and Plan - Diagnosis (1) Acute respiratory failure with hypoxia Is this a current diagnosis for this admission?: Yes Plan: Resolved (2) Chills with fever Is this a current diagnosis for this admission?: Yes Plan: Now resolved. Supportive care. (3) Encounter for observation for suspected exposure to other biological agents ruled out Is this a current diagnosis for this admission?: Yes Plan: Being ruled out for coronavirus - Plan Summary Summary: Patient is admitted to the medical floor where he will receive routine supportive and symptomatic cares. He will be treated with IV fluid and IV antibiotics utilizing azithromycin and Rocephin. He will receive supplemental oxygen as needed to maintain an adequate oxygen saturation utilizing nasal cannula oxygen and if required noninvasive airway pressure support devices such as BiPAP. CBCs, metabolic profiles and magnesium levels will be obtained as appropriate. Arterial blood gases will be obtained as needed. Patient will use morphine sulfate 2 to 4 mg IV every 2 hours as needed for pain control. Coronavirus Covid-19 testing is pending. - Time Time Spent with patient: 15-24 minutes
[2019-08-17] MEDS: CEFTRIAXONE 1 GM/D5W RTU 1 GM/50 ML RTUPB IV SCH (21:46)
[2019-08-18] MEDS: ALBUTEROL SULFATE HFA (90 MCG/PUFF) 8 GM MDI IH SCH ×6 (04:00→23:30)
[2019-08-18] MEDS: HEPARIN SOD (PORCINE) 5,000 UNIT/ML 1 ML VIAL SUBCUT SCH ×3 (05:08→22:18)
[2019-08-18] MEDS: FAMOTIDINE 20 MG TABLET PO SCH ×2 (09:06→22:12)
[2019-08-18] MEDS: AZITHROMYCIN 250 MG TABLET PO SCH (09:06)
[2019-08-18] MEDS: GUAIFENESIN 600 MG TABLET.SA PO SCH ×2 (09:06→22:12)
[2019-08-18] MEDS: DOCUSATE SODIUM 100 MG CAPSULE PO SCH ×2 (10:24→22:12)
--- NOTE | 2019-08-18 16:50 | PDOC PROGRESS REPORT ---
Subjective Progress Note for:: 08/18/19 Subjective:: No adverse events overnight. No fevers. He said he feels little bit more rundown today than he did yesterday. He has been eating well. Coronavirus testing was negative. Reason For Visit: PNEUOMONIA Physical Exam Vital Signs: Temp Pulse Resp BP Pulse Ox 97.9 F 83 17 131/89 H 93 08/18/19 16:00 08/18/19 16:00 08/18/19 16:00 08/18/19 16:00 08/18/19 16:00 Intake & Output 08/17/19 08/18/19 08/19/19 06:59 06:59 06:59 Intake Total 2258 1648 225 Balance 2258 1648 225 Weight 109.2 kg 110 kg General appearance: PRESENT: no acute distress, cooperative, disheveled, obese Respiratory exam: PRESENT: clear to auscultation clarita, symmetrical, unlabored. ABSENT: accessory muscle use, chest wall tenderness, prolonged expiratory phas, retraction, rhonchi, tachypnea, wheezes Cardiovascular exam: PRESENT: RRR, +S1, +S2 Pulses: PRESENT: normal carotid pulses Vascular exam: PRESENT: normal capillary refill GI/Abdominal exam: PRESENT: normal bowel sounds, soft. ABSENT: distended, guarding, rebound, tenderness Extremities exam: ABSENT: clubbing, pedal edema Musculoskeletal exam: PRESENT: ambulatory, normal inspection. ABSENT: deformity Neurological exam: PRESENT: alert, awake, oriented to person, oriented to place, oriented to situation Psychiatric exam: PRESENT: appropriate affect, normal mood Skin exam: PRESENT: dry, warm Results Laboratory Results: 08/17/19 05:50 08/16/19 06:03 Impressions: Chest X-Ray 08/14/19 15:28 IMPRESSION: Peripheral patchy opacification at the left lower lung may r epresent combination of left effusion and airspace disease. Assessment and Plan - Diagnosis (1) Acute respiratory failure with hypoxia Is this a current diagnosis for this admission?: Yes Plan: Resolved (2) Chills with fever Is this a current diagnosis for this admission?: Yes Plan: Now resolved. Supportive care. (3) Encounter for observation for suspected exposure to other biological agents ruled out Is this a current diagnosis for this admission?: Yes Plan: Coronavirus testing was negative. Anticipate discharge home tomorrow - Plan Summary Summary: Patient is admitted to the medical floor where he will receive routine supportive and symptomatic cares. He will be treated with IV fluid and IV ant ibiotics utilizing azithromycin and Rocephin. He will receive supplemental oxygen as needed to maintain an adequate oxygen saturation utilizing nasal cannula oxygen and if required noninvasive airway pressure support devices such as BiPAP. CBCs, metabolic profiles and magnesium levels will be obtained as appropriate. Arterial blood gases will be obtained as needed. Patient will use morphine sulfate 2 to 4 mg IV every 2 hours as needed for pain control. Coronavirus Covid-19 testing is pending. - Time Time Spent with patient: 15-24 minutes
[2019-08-18] MEDS: CEFTRIAXONE 1 GM/D5W RTU 1 GM/50 ML RTUPB IV SCH (22:12)
[2019-08-19] MEDS: ALBUTEROL SULFATE HFA (90 MCG/PUFF) 8 GM MDI IH SCH ×3 (03:52→10:41)
[2019-08-19] MEDS: HEPARIN SOD (PORCINE) 5,000 UNIT/ML 1 ML VIAL SUBCUT SCH (05:17)
[2019-08-19] MEDS: AZITHROMYCIN 250 MG TABLET PO SCH (09:30)
[2019-08-19] MEDS: FAMOTIDINE 20 MG TABLET PO SCH (09:31)
[2019-08-19] MEDS: GUAIFENESIN 600 MG TABLET.SA PO SCH (09:31)
[2019-08-19] MEDS: DOCUSATE SODIUM 100 MG CAPSULE PO SCH (09:31)
[2019-08-19 11:34] VITALS: BP 131/69
--- NOTE | 2019-08-19 15:36 | PDOC DISCHARGE SUMMARY ---
Impression - Admit/DC Date/PCP Admission Date/Primary Care Provider: 08/14/19 20:31 Discharge Date: 08/19/19 - Discharge Diagnosis (1) Acute respiratory failure with hypoxia Is this a current diagnosis for this admission?: Yes (2) Chills with fever Is this a current diagnosis for this admission?: Yes (3) Encounter for observation for suspected exposure to other biological agents ruled out Is this a current diagnosis for this admission?: Yes - Assessment Summary: Patient is admitted to the medical floor where he will receive routine supportive and symptomatic cares. He will be treated with IV fluid and IV antibiotics utilizing azithromycin and Rocephin. He will receive supplemental oxygen as needed to maintain an adequate oxygen saturation utilizing nasal cannula oxygen and if required noninvasive airway pressure support devices such as BiPAP. CBCs, metabolic profiles and magnesium levels will be obtained as appropriate. Arterial blood gases will be obtained as needed. Patient will use morphine sulfate 2 to 4 mg IV every 2 hours as needed for pain control. Molina virus Covid-19 testing is pending. - Additional Information Resuscitation Status: Full Code Discharge Diet: Regular Discharge Activity: Activity As Tolerated Referrals: [facility] [Outside] (PATIENT TO BE FOLLOWED BY HEALTH DEPT. ON SELF QUARANTINE AT HOME. ONCE THE HEALTH DEPT. RELEASES PATIENT THEN PATIENT MAY SCHEDULE A FOLLOW UP APPT. WITH PCP.) Home Medications: No Home Medications 08/15/19 History of Present Illiness History of Present Illness: JAYSON OBREGON is a 33 year old male who presented the emergency room with a 3- day history of fever. He admits having developed an intermittent fever 3 days ago which has gradually worsened to being severe (subjective). His fever has been accompanied by chills, ague, malaise, generalized weakness and fatigue. His fevers been associated with rhinorrhea, nonproductive cough and headache. He denies other associated or accompanying signs and symptoms. He denies prior similar episodes. He has not identified any aggravating or ameliorating factors for his fever. In the emergency room he was found to have a left lower lobe infiltrate on his chest x-ray and a fever to 103 F with an oxygen saturation of 88% on room air and a tachycardia in the 140s. He was subsequently treated with IV fluids, antipyretics and antibiotics in the emergency room and admitted to the medical floor for further evaluation and treatment. Covid-19 testing has been performed. Hospital Course Hospital Course: He ruled out for molina virus infection. He was put empirically on antibiotics to cover for respiratory bacterial infections, but he remained persistently febrile for a few days and then abruptly stopped. He has had 6 days of antibiotics and I elected not to continue him at home. He has been afebrile for the past few days now. He tested negative for influenza, but I suspect that he actually did have an influenza or an influenza-like illness, because his presenting symptoms were consistent with that with the fever, chills, shortness of breath, nausea, and body aches, and I think he is now convalescing. He was instructed to go home and take the next couple of days off before going back to work. He said that would not be a problem. His labs and examination were reassuring and he was discharged in stable condition. Physical Exam Vital Signs: Temp Pulse Resp BP Pulse Ox 97.9 F 81 17 131/69 H 94 08/19/19 11:33 08/19/19 11:33 08/19/19 11:33 08/19/19 11:33 08/19/19 11:33 Intake & Output 08/18/19 08/19/19 08/20/19 06:59 06:59 06:59 Intake Total 1648 1515 Balance 1648 1515 Weight 110 kg 106.8 kg General appearance: PRESENT: no acute distress, cooperative, disheveled, obese Respiratory exam: PRESENT: clear to auscultation clarita, symmetrical, unlabored. ABSENT: accessory muscle use, chest wall tenderness, prolonged expiratory phas, retraction, rhonchi, tachypnea, wheezes Cardiovascular exam: PRESENT: RRR, +S1, +S2 Pulses: PRESENT: normal carotid pulses Vascular exam: PRESENT: normal capillary refill GI/Abdominal exam: PRESENT: normal bowel sounds, soft. ABSENT: distended, guarding, rebound, tenderness Extremities exam: ABSENT: clubbing, pedal edema Musculoskeletal exam: PRESENT: ambulatory, normal inspection. ABSENT: deformity Neurological exam: PRESENT: alert, awake, oriented to person, oriented to place, oriented to situation Psychiatric exam: PRESENT: appropriate affect, normal mood Skin exam: PRESENT: dry, warm Results Laboratory Results: WBC 6.1 10^3/uL (4.0-10.5) 08/17/19 05:50 RBC 4.78 10^6/uL (4.35-5.55) 08/17/19 05:50 Hgb 13.7 g/dL (13.5-17.0) 08/17/19 05:50 Hct 38.8 % (37.9-51.0) 08/17/19 05:50 MCV 81 fl (80-97) 08/17/19 05:50 MCH 28.6 pg (27.0-33.4) 08/17/19 05:50 MCHC 35.2 g/dL (32.0-36.0) 08/17/19 05:50 RDW 13.4 % (11.5-14.0) 08/17/19 05:50 Plt Count 334 10^3/uL (150-450) 08/17/19 05:50 Lymph % (Auto) 8.7 % (13-45) L 08/14/19 16:30 Leslie % (Auto) 10.4 % (3-13) 08/14/19 16:30 Eos % (Auto) 0.1 % (0-6) 08/14/19 16:30 Baso % (Auto) 0.5 % (0-2) 08/14/19 16:30 Absolute Neuts (auto) 8.2 10^3/uL (1.7-8.2) 08/14/19 16:30 Absolute Lymphs (auto) 0.9 10^3/uL (0.5-4.7) 08/14/19 16:30 Absolute Monos (auto) 1.1 10^3/uL (0.1-1.4) 08/14/19 16:30 Absolute Eos (auto) 0.0 10^3/uL (0.0-0.6) 08/14/19 16:30 Absolute Basos (auto) 0.0 10^3/uL (0.0-0.2) 08/14/19 16:30 Seg Neutrophils % 80.3 % (42-78) H 08/14/19 16:30 Carbonic Acid 0.82 mmol/L (1.05-1.35) L 08/14/19 19:51 HCO3/H2CO3 Ratio 25:1 08/14/19 19:51 ABG pH 7.50 (7.35-7.45) H 08/14/19 19:51 ABG pCO2 27.4 mmHg (35-45) L 08/14/19 19:51 ABG pO2 91.6 mmHg (80-100) 08/14/19 19:51 ABG HCO3 20.7 mmol/L (20-24) 08/14/19 19:51 ABG Total CO2 21.5 mmol/L (23-27) L 08/14/19 19:51 ABG O2 Saturation 97.7 % (94-98) 08/14/19 19:51 ABG Base Excess -1.0 mmol/L 08/14/19 19:51 FiO2 4L 08/14/19 19:51 Sodium 136.0 mmol/L (137-145) L 08/16/19 06:03 Potassium 4.7 mmol/L (3.6-5.0) 08/16/19 06:03 Chloride 99 mmol/L (98-107) 08/16/19 06:03 Carbon Dioxide 22 mmol/L (22-30) 08/16/19 06:03 Anion Gap 15 (5-19) 08/16/19 06:03 BUN 16 mg/dL (7-20) 08/16/19 06:03 Creatinine 0.77 mg/dL (0.52-1.25) 08/16/19 06:03 Est GFR ( Amer) > 60 (>60) 08/16/19 06:03 Est GFR (MDRD) Non-Af > 60 (>60) 08/16/19 06:03 Glucose 94 mg/dL (75-110) 08/16/19 06:03 Calcium 8.9 mg/dL (8.4-10.2) 08/16/19 06:03 Magnesium 2.3 mg/dL (1.6-2.3) 08/16/19 06:03 Total Bilirubin 0.7 mg/dL (0.2-1.3) 08/16/19 06:03 Direct Bilirubin 0.3 mg/dL (0.0-0.4) 08/16/19 06:03 Neonat Total Bilirubin Not Reportable 08/16/19 06:03 Neonat Direct Bilirubin Not Reportable 08/16/19 06:03 Neonat Indirect Bili Not Reportable 08/16/19 06:03 AST 61 U/L (17-59) H 08/16/19 06:03 ALT 76 U/L (<50) H 08/16/19 06:03 Alkaline Phosphatase 71 U/L (38-126) 08/16/19 06:03 Total Protein 7.4 g/dL (6.3-8.2) 08/16/19 06:03 Albumin 4.1 g/dL (3.5-5.0) 08/16/19 06:03 Lipase 58.4 U/L (23-300) 08/14/19 16:30 Urine Color TANI 08/14/19 17:30 Urine Appearance SLIGHTLY-CLOUDY 08/14/19 17:30 Urine pH 6.0 (5.0-9.0) 08/14/19 17:30 Ur Specific [place] 1.033 08/14/19 17:30 Urine Protein 100 mg/dL (NEGATIVE) H 08/14/19 17:30 Urine Glucose (UA) NEGATIVE mg/dL (NEGATIVE) 08/14/19 17:30 Urine Ketones NEGATIVE mg/dL (NEGATIVE) 08/14/19 17:30 Urine Blood NEGATIVE (NEGATIVE) 08/14/19 17:30 Urine Nitrite (Reflex) NEGATIVE (NEGATIVE) 08/14/19 17:30 Urine Bilirubin NEGATIVE (NEGATIVE) 08/14/19 17:30 Urine Urobilinogen NEGATIVE mg/dL (<2.0) 08/14/19 17:30 Leukocyte Esterase Rfl NEGATIVE (NEGATIVE) 08/14/19 17:30 Urine RBC (Auto) 4 /HPF 08/14/19 17:30 Urine WBC (Reflex) 3 /HPF 08/14/19 17:30 Urine Mucus (Auto) MANY /LPF 08/14/19 17:30 Urine Ascorbic Acid NEGATIVE (NEGATIVE) 08/14/19 17:30 COVID-19 Source NASAL WASHING 08/14/19 14:42 COVID-19 (LUIGI) Not Detected (Not Detect) 08/14/19 14:42 Impressions: Chest X-Ray 08/14/19 15:28 IMPRESSION: Peripheral patchy opacification at the left lower lung may represent combination of left effusion and airspace disease. Plan Time Spent: Greater than 30 Minutes Stroke Is this a Stroke Patient?: No Acute Heart Failure - Is this a Heart Failure Patient?: No
== END 2019-08-19 12:19 | disposition home or self-care (01) | DRG 193 ==
LOC: ER 14:59 → EH 20:31 → 5 21:51 → 4N 08-18 17:04
PROVIDERS: ADMIT Emergency Medicine; ATTEND Family Medicine
DX: J11.08 Influenza due to unidentified influenza virus with specified pneumonia (principal); J96.01 Acute respiratory failure with hypoxia; J12.9 Viral pneumonia, unspecified; R51 Headache; Z03.818 Encounter for observation for suspected exposure to other biological agents ruled out
CPT/HCPCS: 36415; 71045; 80048; 80053; 81001; 82803; 83690; 83735; 85025; 85027; 87635; 93005; 93010; 96361; 96374; 99285; J0696; J1644; J2060; J2270; J2405; J3490; J7030

== ENCOUNTER → 2019-08-14 | Outpatient (CLI) | payer SELFPAY ==
--- NOTE | 2019-08-14 14:55 | ER RDC ASSESSMENT REPORT ---
Intake - In the Last 14 days Have you traveled outside [place]?: No Have you been in close contact with someone CONFIRMED: No Worked in Healthcare?: No - Symptoms Subjective Fever([place] feverish): Yes Chills: Yes Muscule Aches: Yes Runny Nose: Yes Sore Throat: No - Do you have any of the following Chronic lung disease: Asthma or emphysema or COPD: No Cystic Fibrosis: No Diabetes: No High Blood Pressure: No Cardiovascular Disease: No Chronic Kidney Disease: No Chronic Liver Disease: No Chronic blood disorder like Sickle Cell Disease: No Weak immune system due to disease or medication: No Developmental delay - Moderate to Severe: No Recent (within past 2 weeks) or current : No - Objective Objective: Given above, testing performed: If Testing Performed: Test Specimen Type Sent to General - General Information source: Patient - [facility] Onset/Duration: Gradual Quality of pain: Achy Associated symptoms: Chills, Nonproductive cough, Fever, Headache, Nausea, Vomiting. denies: Shortness of breath Exacerbated by: Denies Relieved by: Denies Similar symptoms previously: No Recently seen / treated by doctor: No - Related Data Allergies/Adverse Reactions: No Known Allergies Allergy (Verified 08/14/19 15:19) Past Medical History - General Information source: Patient - Social History Smoking Status: Never Smoker Frequency of alcohol use: None Drug Abuse: None Lives with: Family Family History: Reviewed & Not Pertinent - Medical History Medical History: Negative Surgical Hx: Negative Physical Exam - General General appearance: Alert In distress: Mild Notes: pale, vomiting Diagnostic Results Laboratory Results: Patient with nausea and vomiting, presenting for covid screening. Patient will be redirected to the main emergency department for further evaluation. Charge nurse Adriane notified. Patient and his spouse feel comfortable with this plan of care at this time. RDC Discharge - Discharge Clinical Impression: Cough Vomiting Qualifiers: Vomiting type: unspecified Vomiting Intractability: unspecified Nausea presence: with nausea Qualified Code(s): R11.2 - Nausea with vomiting, unspecified Condition: Stable Disposition: To ED
[2019-08-14 15:35] LABS: A TYPE INFLUENZA AG NEGATIVE (NEGATIVE); B INFLUENZA AG NEGATIVE (NEGATIVE)
== END ==
LOC: RDC 14:21
PROVIDERS: ATTEND Nurse Practitioner Family
DX: Z20.828 Contact with and (suspected) exposure to other viral communicable diseases (principal); R50.9 Fever, unspecified; R05 Cough; M79.10 Myalgia, unspecified site; R09.89 Other specified symptoms and signs involving the circulatory and respiratory systems; R51 Headache; R11.2 Nausea with vomiting, unspecified
CPT/HCPCS: 87070; 87804; 87880

== ENCOUNTER 2019-11-02 19:14 | Emergency (ER) | payer SELFPAY ==
[2019-11-02 19:20] VITALS: BP 146/95
[2019-11-02] MEDS ORDERED: OXYCODONE-ACETAMINOPHEN 5-325 MG TABLET PO ONE (19:37)
[2019-11-02] MEDS ORDERED: PENICILLIN V POTASSIUM 500 MG TABLET PO ONE (19:37)
--- NOTE | 2019-11-02 19:43 | ER Document Report ---
HPI <LEIDA BARRIGA - Last Filed: 11/02/19 19:45> - HPI Pain Level: 4 - CONSTITUTIONAL Constitutional: DENIES: Fever, Chills - REPRODUCTIVE Reproductive: DENIES: : <FEDERICO VILLANUEVA - Last Filed: 11/02/19 20:41> - HPI Time Seen by Provider: 11/02/19 19:27 Past Medical History - Social History Smoking Status: Never Smoker Frequency of alcohol use: None Drug Abuse: None Family History: denies: CAD, DM, Hypertension, Malignancy Patient has homicidal ideation: No - Past Medical History Cardiac Medical History: Denies: Hx Atrial Fibrillation, Hx Coronary Artery Disease, Hx DVT, Hx Hypercholesterolemia, Hx Hypertension, Hx Pulmonary Embolism Pulmonary Medical History: Denies: Hx Asthma, Hx COPD Neurological Medical History: Denies: Hx Seizures Endocrine Medical History: Denies: Hx Diabetes Mellitus Type 1, Hx Diabetes Mellitus Type 2, Hx Hyperthyroidism, Hx Hypothyroidism GI Medical History: Denies: Hx Cirrhosis, Hx Crohn's Disease, Hx Hepatitis, Hx Ulcerative Colitis Musculoskeletal Medical History: Denies Hx Arthritis, Denies Hx Gout Skin Medical History: Denies Hx Eczema, Denies Hx Psoriasis Infectious Medical History: Denies: Hx Hepatitis <FEDERICO VILLANUEVA - Last Filed: 11/02/19 20:41> Course - Vital Signs Vital signs: Temp Pulse Resp BP Pulse Ox 98.5 F 84 18 146/95 H 96 11/02/19 19:28 11/02/19 19:19 11/02/19 19:19 11/02/19 19:19 11/02/19 19:19 <LEIDA BARRIGA - Last Filed: 11/02/19 19:45> - Vital Signs Vital signs: Temp Pulse Resp BP Pulse Ox 98.5 F 84 18 146/95 H 96 11/02/19 19:28 11/02/19 19:19 11/02/19 19:19 11/02/19 19:19 11/02/19 19:19 <FEDERICO VILLANUEVA - Last Filed: 11/02/19 20:41> Discharge <LEIDA BARRIGA - Last Filed: 11/02/19 19:45> <FEDERICO VILLANUEVA - Last Filed: 11/02/19 20:41> - Discharge Clinical Impression: Dental infection Condition: Stable Disposition: HOME, SELF-CARE Additional Instructions: Today are seen emergency department for dental pain. Since the clindamycin is upsetting her stomach I am switching you to penicillin VK. I am also giving you a narcotic pain medication, Percocet. Do not drive or operate heavy machinery. Please keep your appointment with your dentist on the to have the tooth pulled. If you develop high fever, worsening pain, increasing swelling to the area please seek medical attention immediately. Dental Infection or Abscess You have an infection, perhaps an abscess (pus formation) of the gum around one of your teeth, which is probably decayed. If there is an abscess, it may drain on its own or it may need to be opened or lanced. Severe swelling or drainage around a tooth usually means a deep dental abscess which usually requires evaluation and treatment by a dentist or oral surgeon. Antibiotics may be prescribed while awaiting dental treatment. If you develop high fever with chills, worsening pain, or increasing swelling in the area, see a dentist or oral surgeon immediately or return to the Emergency Department immediately. Prescriptions: Penicillin V Potassium [Penicillin Vk 500 mg Tablet] 500 mg PO BID #20 tablet Oxycodone HCl/Acetaminophen [Percocet 5-325 mg Tablet] 1 tab PO Q6 PRN #12 tablet PRN Reason: Oxycodone HCl/Acetaminophen [Percocet 5-325 mg Tablet] 1 tab PO Q6H PRN #12 tablet PRN Reason: Oxycodone HCl/Acetaminophen [Percocet 5-325 mg Tablet] 1 tab PO Q6H PRN #12 tablet PRN Reason:
--- NOTE | 2019-11-02 19:57 | ER Document Report ---
Doctor's Note Notes: 11/02/19 19:55 I sent an electronic prescription for Percocet on this patient for JAZMIN Marcelino. Her electronic prescribing is having technical issues. I did not personally see this patient but was on duty while this patient was in the department and being seen by Estephania Russell.
[2019-11-02] MEDS ORDERED: HYDROCODONE/ACETAMINOPHEN 5-325 MG (6 TAB/ER DISP) PO SCH (20:00)
== END 2019-11-02 19:52 | disposition home or self-care (01) ==
LOC: ER 19:14
DX: K04.7 Periapical abscess without sinus (principal); K08.89 Other specified disorders of teeth and supporting structures
CPT/HCPCS: 99282